=== PATIENT | female | born 1995 | race Caucasian/White ===

== ENCOUNTER 2018-08-11 12:35 | Emergency (ER) | payer BC, MEDICAID ==
[~2018-08-11] VITALS: Ht 154.9 cm; Wt 51.3 kg
[2018-08-11 12:35] VITALS: BP_SYST 113
[2018-08-11] MEDS ORDERED: KETOROLAC TROMETHAMINE 30 MG VIAL IM ONE (14:45)
[2018-08-11 15:13] VITALS: BP_SYST 112
== END 2018-08-11 15:14 | disposition home or self-care (01) ==
LOC: SED 12:35
DX: M25.511 Pain in right shoulder (principal); Z88.1 Allergy status to other antibiotic agents
CPT/HCPCS: 96372; 73030; 99283; J1885